=== PATIENT | female | born 1970 | race Caucasian/White ===

== ENCOUNTER 2020-04-06 22:01 | Emergency (ER) | payer MEDICAID ==
[~2020-04-06] VITALS: Ht 162.6 cm; Wt 106.6 kg
[2020-04-06 22:41] VITALS: BP_SYST 166
--- NOTE | 2020-04-06 22:41 | NUR ---
Patient triaged and placed in waiting room. VSS and patient appears in no acute distress at this time. Accompanied by SELF, awaiting available bed, and MD notified of need for MSE.
--- NOTE | 2020-04-07 03:00 | NUR ---
ER Dr. márquez at bedside examining patient.
--- NOTE | 2020-04-07 03:13 | NUR ---
Patient is a&ox4 complaining of a toothache on bottom left side of mouth that started two weeks ago and progressively gotten worse. Patient was prescribed clindamycin and motrin two weeks ago but states there hasnt been much change in her condition. Patient rates her pain a 10 out of 10 and describes it as a ache that travels across her face. Patient reports taking Motrin 400mg taken at 10pm on thursday night and last dose of clindamycin was two days ago.
[2020-04-07] MEDS ORDERED: cefTRIAXone 1 GM in LIDOCAINE 1%, 20 ML MDV 2.1 ML IM ONE (03:15)
[2020-04-07] MEDS ORDERED: ACETAMINOPHEN 500 MG TABLET PO ONE (03:15)
[2020-04-07] MEDS ORDERED: CHLORHEXIDINE GLUCONATE 15 ML/DOSE, 480 ML MM ONE (03:45)
[2020-04-07] MEDS ORDERED: LIDOCAINE VISCOUS 2%, 15 ML UDC PO ONE (03:45)
--- NOTE | 2020-04-07 04:05 | NUR ---
Patient tolerated medications well. Patient has lidocaine saturated gauze packed on left side of mouth to ease pain of tootache per MD order.
--- NOTE | 2020-04-07 04:26 | NUR ---
PATIENT REPORTS TOOTHACHE IS FEELING "MUCH BETTER". PATIENT REPORTS PAIN IS NOW A 3 OUT OF 10.
[2020-04-07 04:51] VITALS: BP_SYST 133
--- NOTE | 2020-04-07 04:51 | NUR ---
Patient given written and verbal discharge instructions and verbalizes understanding. ER MD discussed with patient the results and treatment provided. Patient in stable condition. ID arm band removed. Rx of NORCO, DOXYCYCLINE, LIDOCAINE given. Patient educated on pain management and to follow up with PMD. Pain Scale 3/10. Opportunity for questions provided and answered. Medication side effect fact sheet provided.
== END 2020-04-07 04:51 | disposition home or self-care (01) ==
LOC: SED 22:01
DX: K05.10 Chronic gingivitis, plaque induced (principal); K02.9 Dental caries, unspecified; Z88.0 Allergy status to penicillin
CPT/HCPCS: 96372; 99283; J0696; J2001 ×2; J7030

== ENCOUNTER 2021-10-16 16:35 | Emergency (ER) | payer MEDICAID, SELFPAY ==
[~2021-10-16] VITALS: Ht 162.6 cm; Wt 113.4 kg
[2021-10-16 17:20] VITALS: BP_SYST 93
--- NOTE | 2021-10-16 17:33 | NUR ---
ER Dr. Hoskins at bedside examining patient.
--- NOTE | 2021-10-16 17:36 | NUR ---
PT BIB SELF C/O COUGH, PAIN IN CHEST FROM COUGHING, SOB X8 DAYS, ON SET 3 DAYS AFTER COUSINS WHO FROM COVID. PT IS A&OX4, AMBULATORY, NO DISTRESS NOTED AT THIS TIME.
--- NOTE | 2021-10-16 18:05 | NUR ---
Radiology at bedside.
--- NOTE | 2021-10-16 18:05 | NUR ---
covid swab sent to lab.
[2021-10-16] MEDS ORDERED: PROMETHAZINE HCL/CODEINE 6.25-10 mg/5 mL UDC PO ONE (19:15)
[2021-10-16] MEDS ORDERED: IBUPROFEN 400 MG TABLET ONE (19:37)
[2021-10-16] MEDS ORDERED: IBUPROFEN 800 MG TABLET PO ONE (19:45)
--- NOTE | 2021-10-16 19:49 | NUR ---
Assumed care of patient at change of shift. Introduced self to patient, positioned for comfort. Patient resting quietly. No acute distress noted. Vital signs within normal range. Medicated w/ 800mg of motrin per MD orders. Will cont to monitor and observe for any adverse reaction.
[2021-10-16 19:50] VITALS: BP_SYST 125
--- NOTE | 2021-10-16 19:51 | NUR ---
patient not given phenergan w/ codeine per MD 2nd to patient driving.
[2021-10-16] MEDS ORDERED: ALBU8.5H8 INH (20:16)
[2021-10-16] MEDS ORDERED: PRED20TA PO (20:16)
--- NOTE | 2021-10-16 20:37 | NUR ---
Patient given written and verbal discharge instructions and verbalizes understanding. ER MD discussed with patient the results and treatment provided. Patient in stable condition. ID arm band removed. Rx of given. Patient educated on pain management and to follow up with PMD. Pain Scale 5. Opportunity for questions provided and answered. Medication side effect fact sheet provided.
== END 2021-10-16 20:37 | disposition home or self-care (01) ==
LOC: SED 16:35
DX: U07.1 COVID-19 (principal); Z88.0 Allergy status to penicillin; Z79.899 Other long term (current) drug therapy
CPT/HCPCS: 36415; 71045; 99284